=== PATIENT | female | born 1950 | race Caucasian/White ===

== ENCOUNTER 2018-06-05 10:08 | Outpatient (CLI) | payer OTHER | END 2018-06-05 11:05 | disposition home or self-care (01) | LOC: NUCLEAR 10:08 | DX: M81.0 Age-related osteoporosis without current pathological fracture (principal) ==

== ENCOUNTER → 2018-06-05 | Outpatient (CLI) | payer OTHER | END | disposition home or self-care (01) | LOC: RAD 08:07 → SONOGRAMA 09:15 | DX: J44.9 Chronic obstructive pulmonary disease, unspecified (principal); E03.8 Other specified hypothyroidism; E04.1 Nontoxic single thyroid nodule ==

== ENCOUNTER 2018-06-10 09:00 | Outpatient (CLI) | payer OTHER | END 2018-06-10 15:00 | disposition home or self-care (01) | LOC: LAB 09:00 | DX: I10 Essential (primary) hypertension (principal); E11.9 Type 2 diabetes mellitus without complications; E03.8 Other specified hypothyroidism; E78.2 Mixed hyperlipidemia; M81.0 Age-related osteoporosis without current pathological fracture; E55.9 Vitamin D deficiency, unspecified; Z12.11 Encounter for screening for malignant neoplasm of colon ==

== ENCOUNTER 2018-06-10 09:22 | Outpatient (CLI) | payer OTHER | END 2018-06-10 10:18 | disposition home or self-care (01) | LOC: NUCLEAR 09:22 | DX: E21.0 Primary hyperparathyroidism (principal); D35.1 Benign neoplasm of parathyroid gland; E04.1 Nontoxic single thyroid nodule; E04.8 Other specified nontoxic goiter | CPT/HCPCS: 78070; A9500 ==

== ENCOUNTER 2018-09-30 07:23 | Outpatient (CLI) | payer OTHER | END 2018-09-30 07:31 | disposition home or self-care (01) | LOC: LAB 07:23 | DX: I10 Essential (primary) hypertension (principal); E11.9 Type 2 diabetes mellitus without complications; E03.8 Other specified hypothyroidism; E78.2 Mixed hyperlipidemia; K92.1 Melena ==

== ENCOUNTER 2018-10-02 09:37 | Outpatient (CLI) | payer OTHER | END 2018-10-02 13:17 | disposition home or self-care (01) | LOC: LAB 09:37 | DX: Z12.11 Encounter for screening for malignant neoplasm of colon (principal) ==

== ENCOUNTER 2018-10-13 07:38 | Outpatient (CLI) | payer OTHER | END 2018-10-13 13:50 | disposition home or self-care (01) | LOC: LAB 07:38 | DX: E21.2 Other hyperparathyroidism (principal) ==

== ENCOUNTER → 2018-12-02 | Outpatient (CLI) | payer OTHER | END | disposition home or self-care (01) | LOC: MAMO-SONO 09:00 | DX: Z12.31 Encounter for screening mammogram for malignant neoplasm of breast (principal); Z87.898 Personal history of other specified conditions; N60.11 Diffuse cystic mastopathy of right breast; N60.12 Diffuse cystic mastopathy of left breast; R10.84 Generalized abdominal pain ==

== ENCOUNTER 2019-01-08 07:24 | Outpatient (CLI) | payer OTHER | END 2019-01-08 07:30 | disposition home or self-care (01) | LOC: LAB 07:24 | DX: E03.8 Other specified hypothyroidism (principal); E11.9 Type 2 diabetes mellitus without complications; I10 Essential (primary) hypertension; E78.2 Mixed hyperlipidemia ==

== ENCOUNTER 2019-09-04 08:16 | Outpatient (CLI) | payer OTHER | END 2019-09-04 13:39 | disposition home or self-care (01) | LOC: NUCLEAR 08:16 | DX: I10 Essential (primary) hypertension (principal); J44.9 Chronic obstructive pulmonary disease, unspecified ==

== ENCOUNTER → 2020-02-25 | Outpatient (CLI) | payer OTHER | END | disposition home or self-care (01) | LOC: MAMO-SONO 09:39 | PROVIDERS: ATTEND Internal Medicine Cardiovascular Disease | DX: Z12.31 Encounter for screening mammogram for malignant neoplasm of breast (principal); N64.59 Other signs and symptoms in breast; R10.84 Generalized abdominal pain ==

== ENCOUNTER 2020-06-22 13:09 | Outpatient (CLI) | payer OTHER | END 2020-06-22 13:13 | disposition home or self-care (01) | LOC: NUCLEAR 13:09 | PROVIDERS: ATTEND Internal Medicine Rheumatology | DX: M81.0 Age-related osteoporosis without current pathological fracture (principal) ==

== ENCOUNTER → 2020-12-01 14:17 | Outpatient (CLI) | payer OTHER | END | disposition home or self-care (01) | LOC: EKG 14:17 | PROVIDERS: ATTEND Colon & Rectal Surgery | DX: Z01.810 Encounter for preprocedural cardiovascular examination (principal); K59.00 Constipation, unspecified; N39.0 Urinary tract infection, site not specified; K62.5 Hemorrhage of anus and rectum; D59.8 Other acquired hemolytic anemias; Z11.59 Encounter for screening for other viral diseases; Z20.828 Contact with and (suspected) exposure to other viral communicable diseases; D68.9 Coagulation defect, unspecified ==

== ENCOUNTER 2021-01-25 08:11 | Outpatient (CLI) | payer OTHER | END 2021-01-25 08:13 | disposition home or self-care (01) | LOC: NUCLEAR 08:11 | PROVIDERS: ATTEND Internal Medicine Cardiovascular Disease | DX: E21.0 Primary hyperparathyroidism (principal); D35.1 Benign neoplasm of parathyroid gland; E04.1 Nontoxic single thyroid nodule | CPT/HCPCS: 78013; A9500 ==

== ENCOUNTER 2021-03-01 09:26 | Outpatient (CLI) | payer OTHER | END 2021-03-01 09:29 | disposition home or self-care (01) | LOC: MAMO-SONO 09:26 | PROVIDERS: ATTEND Internal Medicine Cardiovascular Disease | DX: N64.59 Other signs and symptoms in breast (principal); Z12.31 Encounter for screening mammogram for malignant neoplasm of breast; Z87.898 Personal history of other specified conditions ==

== ENCOUNTER 2021-11-07 09:00 | Outpatient (CLI) | payer OTHER | END 2021-11-07 09:03 | disposition home or self-care (01) | LOC: NUCLEAR 09:00 | PROVIDERS: ATTEND Internal Medicine Rheumatology | DX: I87.2 Venous insufficiency (chronic) (peripheral) (principal) ==

== ENCOUNTER 2022-03-21 09:07 | Outpatient (CLI) | payer OTHER | END 2022-03-21 09:09 | disposition home or self-care (01) | LOC: MAMO-SONO 09:07 | PROVIDERS: ATTEND Internal Medicine Cardiovascular Disease | DX: Z12.31 Encounter for screening mammogram for malignant neoplasm of breast (principal); N63.11 Unspecified lump in the right breast, upper outer quadrant; N80.9 Endometriosis, unspecified ==

== ENCOUNTER 2022-07-09 05:27 | Day surgery (SDC) | payer OTHER ==
[~2022-07-09 05:27] MED LIST: HYZAAR 100-12.1 EACH PO; PROLIA60 MG/1 ML SUBCUTANEO
== END 2022-07-09 12:20 | disposition home or self-care (01) ==
LOC: CIR.AMB 05:27
PROVIDERS: ATTEND Specialist
DX: N84.0 Polyp of corpus uteri (principal); I10 Essential (primary) hypertension; Z20.822 Contact with and (suspected) exposure to COVID-19

== ENCOUNTER 2022-11-10 09:53 | Outpatient (CLI) | payer OTHER | END 2022-11-10 09:55 | disposition home or self-care (01) | LOC: RAD 09:53 | PROVIDERS: ATTEND Internal Medicine Rheumatology | DX: M17.0 Bilateral primary osteoarthritis of knee (principal) ==

== ENCOUNTER 2023-04-25 08:11 | Outpatient (CLI) | payer OTHER | END 2023-04-25 08:18 | disposition home or self-care (01) | LOC: NUCLEAR 08:11 | PROVIDERS: ATTEND Internal Medicine Cardiovascular Disease | DX: I10 Essential (primary) hypertension (principal); G45.9 Transient cerebral ischemic attack, unspecified ==

== ENCOUNTER 2023-04-25 12:49 | Outpatient (CLI) | payer OTHER | END 2023-04-25 12:52 | disposition home or self-care (01) | LOC: MAMO-SONO 12:49 | PROVIDERS: ATTEND Internal Medicine Cardiovascular Disease | DX: Z12.31 Encounter for screening mammogram for malignant neoplasm of breast (principal); N63.11 Unspecified lump in the right breast, upper outer quadrant; N80.9 Endometriosis, unspecified ==

== ENCOUNTER 2024-02-11 07:53 | Outpatient (CLI) | payer OTHER | END 2024-02-11 07:56 | disposition home or self-care (01) | LOC: NUCLEAR 07:53 | PROVIDERS: ATTEND Internal Medicine | DX: Q21.0 Ventricular septal defect (principal) ==

== ENCOUNTER 2024-02-17 08:03 | Outpatient (CLI) | payer OTHER | END 2024-02-17 08:18 | disposition home or self-care (01) | LOC: TOM 08:03 | PROVIDERS: ATTEND Internal Medicine Pulmonary Disease | DX: J18.9 Pneumonia, unspecified organism (principal) ==

== ENCOUNTER 2024-05-13 10:17 | Outpatient (CLI) | payer OTHER | END 2024-05-13 10:39 | disposition home or self-care (01) | LOC: MAMO-SONO 10:17 | PROVIDERS: ATTEND Specialist | DX: R10.2 Pelvic and perineal pain (principal); N60.11 Diffuse cystic mastopathy of right breast; N60.12 Diffuse cystic mastopathy of left breast; Z12.31 Encounter for screening mammogram for malignant neoplasm of breast ==

== ENCOUNTER 2024-07-10 13:34 | Outpatient (CLI) | payer OTHER | END 2024-07-10 13:35 | disposition home or self-care (01) | LOC: NUCLEAR 13:34 | PROVIDERS: ATTEND Internal Medicine Rheumatology | DX: M81.0 Age-related osteoporosis without current pathological fracture (principal) ==

== ENCOUNTER 2024-07-24 14:46 | Outpatient (CLI) | payer OTHER | END 2024-07-24 14:53 | disposition home or self-care (01) | LOC: RAD 14:46 | PROVIDERS: ATTEND Internal Medicine Rheumatology | DX: M47.817 Spondylosis without myelopathy or radiculopathy, lumbosacral region (principal); M45.9 Ankylosing spondylitis of unspecified sites in spine; M45.8 Ankylosing spondylitis sacral and sacrococcygeal region ==

== ENCOUNTER 2024-10-07 10:02 | Outpatient (CLI) | payer OTHER | END 2024-10-07 10:13 | disposition home or self-care (01) | LOC: TOM 10:02 | PROVIDERS: ATTEND Internal Medicine Pulmonary Disease | DX: R91.8 Other nonspecific abnormal finding of lung field (principal) ==

== ENCOUNTER 2024-10-26 08:31 | Outpatient (CLI) | payer OTHER | END 2024-10-26 08:40 | disposition home or self-care (01) | LOC: TOM 08:31 | PROVIDERS: ATTEND Internal Medicine Gastroenterology | DX: Z86.0100 Personal history of colon polyps, unspecified (principal) ==

== ENCOUNTER 2025-06-04 08:38 | Outpatient (CLI) | payer OTHER | END 2025-06-04 08:40 | disposition home or self-care (01) | LOC: RAD 08:38 | PROVIDERS: ATTEND Specialist | DX: M17.12 Unilateral primary osteoarthritis, left knee (principal); M17.11 Unilateral primary osteoarthritis, right knee; M22.2X1 Patellofemoral disorders, right knee; M16.11 Unilateral primary osteoarthritis, right hip; M16.12 Unilateral primary osteoarthritis, left hip; R10.20 Pelvic and perineal pain unspecified side; N60.11 Diffuse cystic mastopathy of right breast; N60.12 Diffuse cystic mastopathy of left breast ==

== ENCOUNTER → 2025-08-10 | Outpatient (CLI) | payer OTHER | END | disposition home or self-care (01) | LOC: MRI 07:00 | PROVIDERS: ATTEND Internal Medicine Cardiovascular Disease | DX: R10.9 Unspecified abdominal pain (principal); R31.9 Hematuria, unspecified; C56.9 Malignant neoplasm of unspecified ovary; N80.9 Endometriosis, unspecified | CPT/HCPCS: 72195 ==